=== PATIENT | female | born 1955 | race Caucasian/White ===

== ENCOUNTER 2017-09-28 12:08 | Emergency (ER) | payer BC ==
[~2017-09-28] VITALS: Ht 170.2 cm; Wt 107.0 kg
[2017-09-28 12:12] VITALS: BP 157/68; PULSE 62; RESP 16; TEMP 98.2; O2SAT 95
--- NOTE | 2017-09-28 13:07 | PD ---
HPI Chief Complaint: Wound/Suture/Staple Re-Check Time Seen by Provider: 12:57 Travel History International Travel<30 days: No Contact w/Intl Traveler<30days: No Traveled to known affect area: No History of Present Illness HPI 61-year-old female presents to emergency department requesting suture removal to her right mid back. She had a benign skin lesion removed last Wednesday in [place] by her splunk architect and she is now in [place] for a few weeks. Her splunk architect told her to come to an urgent care for suture removal. She denies fever, vomiting. Denies drainage from the wound site. Symptoms are mild in severity. She has no other medical complaints. No known allergies. No other modifying factors or associated signs and symptoms. PFSH Past Medical History Diminished Hearing: No Tetanus Vaccination: Unknown ?: Not Past Surgical History Hysterectomy: Yes Social History Alcohol Use: No Tobacco Use: No Substance Use: No Allergies-Medications (Allergen,Severity, Reaction): Coded Allergies: No Known Allergies (Unverified , 09/28/17) Reported Meds & Prescriptions Reported Meds & Active Scripts Active No Active Prescriptions or Reported Medications Review of Systems Except as stated in HPI: all other systems reviewed are Neg Physical Exam Narrative GENERAL: Well-nourished, well-developed female patient, in no acute distress; afebrile, nontoxic-appearing SKIN: Warm and dry. Right mid back with approximately 1 cm laceration that is well approximated and with sutures intact; without erythema, edema, drainage; no signs of infection. HEAD: Atraumatic. Normocephalic. EYES: Pupils equal and round. No scleral icterus. No injection or drainage. ENT: Mucosa pink and moist. Airway patent. NECK: Trachea midline. CARDIOVASCULAR: Regular rate. RESPIRATORY: No accessory muscle use. GASTROINTESTINAL: Obese. MUSCULOSKELETAL: No obvious deformities. No clubbing. No cyanosis. No edema. NEUROLOGICAL: Awake and alert. Oriented 3. No obvious cranial nerve deficits. Motor grossly within normal limits. Normal speech. PSYCHIATRIC: Appropriate mood and affect; insight and judgment normal. Data Data Last Documented VS Vital Signs Date Time Temp Pulse Resp B/P (MAP) Pulse Ox O2 Delivery O2 Flow Rate FiO2 09/28/17 12:12 98.2 62 16 157/68 (97) 95 Orders Orders Ed Discharge Order (09/28/17 13:07) [facility] Medical Decision Making Medical Screen Exam Complete: Yes Emergency Medical Condition: Yes Medical Record Reviewed: Yes Differential Diagnosis Encounter for suture removal, medical clearance, wound recheck Narrative Course 61-year-old female presents for suture removal. The wound is well approximated with sutures intact and without signs of infection. Sutures are removed. Patient tolerated well. Instructed patient follow-up with splunk architect. Instructed patient to follow up with primary care provider. Patient verbalizes understanding and agreement with treatment plan. Patient is medically cleared and stable for discharge. Discussed reasons to return to the emergency department. Patient agrees with treatment plan. The patients vital signs are stable and the patient is stable for outpatient follow-up and treatment. Patient discharged home, stable and in no acute distress. Diagnosis Primary Impression: Encounter for removal of sutures Referrals: Line Producer Primary Care Physician Patient Instructions: General Instructions, Stitches Removal (ED) Additional Instructions: Keep area clean and dry Vaseline or Aquaphor as needed to affected area to help with continued healing Follow-up with splunk architect Follow-up with primary care provider Return to the emergency department immediately with worsening of symptoms Med/Other Pt SpecificInfo: No Change to Meds, No Meds Exist/No RX given Scripts No Active Prescriptions or Reported Meds Disposition: 01 DISCHARGE HOME Condition: Stable Sonal Graham Sep 28, 2017 13:07
== END 2017-09-28 13:17 | disposition home or self-care (01) ==
LOC: PHEFT 12:08
DX: Z48.02 Encounter for removal of sutures (principal)
CPT/HCPCS: 99281